=== PATIENT | female | born 1985 | race Caucasian/White ===

== ENCOUNTER 2018-05-20 18:01 | Emergency (ER) | payer MEDICAID ==
[~2018-05-20] VITALS: Ht 157.5 cm; Wt 68.9 kg
[2018-05-20] MEDS ORDERED: HYDREA500 MG PO (18:15)
[2018-05-20] MEDS ORDERED: PERCOCET PO (18:16)
[2018-05-20] MEDS ORDERED: IRON325 PO (18:16)
[2018-05-20] MEDS ORDERED: WELLBUTRIN SR150 MG PO (18:16)
[2018-05-20] MEDS ORDERED: ASPIR 8181 MG PO (18:16)
[2018-05-20] MEDS ORDERED: LEVAQUIN 500 M500 M2 PO (18:16)
[2018-05-20 19:02] LABS: URINE BILIRUBIN NEGATIVE (Negative); URINE BLOOD 2+ (Negative); URINE CLARITY CLEAR; URINE COLOR YELLOW; URINE GLUCOSE-RANDOM NEGATIVE (Negative); URINE KETONES NEGATIVE (Negative); URINE LEUKOCYTES-REFLEX NEGATIVE (Negative); URINE NITRITE-REFLEX NEGATIVE (Negative); URINE PROTEIN NEGATIVE (Negative); URINE UROBILINOGEN 0.2 E.U./dl (0.2-1.0)
[2018-05-20 19:13] LABS: SQUAMOUS 0-3 Few /LPF (0-3)
[2018-05-20 19:14] LABS: BACTERIA-REFLEX None Seen /HPF (None Seen); CASTS None Seen /LPF (None Seen); CRYSTALS None Seen /LPF (None Seen); URINE RBC None Seen /HPF (0-2); URINE WBC-REFLEX None Seen /HPF (0-5)
[2018-05-20 19:30] LABS: HEMATOCRIT 26.7 % (37.0-47.0); HEMOGLOBIN 8.4 gm/dL (12.0-15.0); MCH 24.9 pg (26.0-34.0); MCHC 31.5 g/dL (28.0-37.0); MCV 79.1 fL (80.0-100.0); MPV 8.8 fl. (7.2-11.1); NUCLEATED RBCS 0 /100WBC; PLATELET COUNT* 486 thou/uL (150-400); RBC 3.37 mil/uL (4.20-5.00); RDW-CV 25.9 % (10.5-14.5); WBC 5.4 thou/uL (4.0-11.0)
[2018-05-20 19:39] LABS: CALCIUM 7.9 mg/dL (8.5-10.1); CREATININE 0.7 mg/dL (0.6-1.3); POTASSIUM 3.9 mmol/L (3.5-5.1)
[2018-05-20 19:44] LABS: ALBUMIN 2.3 g/dL (3.4-5.0); TOTAL BILIRUBIN 0.3 mg/dL (<0.1-1.0); TOTAL PROTEIN 6.1 g/dL (6.4-8.2)
[2018-05-20 19:53] LABS: ABSOLUTE BASOPHILS 0.2 thou/uL (0.0-0.2); ABSOLUTE EOSINOPHILS 0.1 thou/uL (0.0-0.7); ABSOLUTE MONOCYTES 0.4 thou/uL (0.0-1.2); ABSOLUTE NEUTROPHILS 3.8 thou/uL (1.6-8.1); PLATELET ESTIMATE ADEQUATE
[2018-05-20 22:46] VITALS: BP 104/54
--- NOTE | 2018-05-21 10:33 | EKG ---
[place] [address] ELECTROCARDIOGRAM REPORT Name: DARRION HERNANDEZ [id number] Admission: 05/20/18 Attend Phys: Discharge: 05/20/18 Date of : 81 Report #: [id number] THIS REPORT FOR: //name// [facility] ED Test Date: 2018-05-20 Test Time: 20:48:33 Pat Name: DARRION HERNANDEZ Department: Room: Gender: F Baker Test: FÁTIMA : 1985 Requested By: Ariadne Cohen Order Number: [id number] MD: Cresencio Bolaños Measurements Intervals [place] Rate: 100 P: 11 OR: 120 QRS: 3 QRSD: 90 T: 11 QT: 369 QTc: 476 Interpretive Statements Sinus tachycardia nonspecific st changes Probable left atrial enlargement Borderline prolonged QT interval Baseline wander in lead(s) V4 No previous ECG available for comparison Electronically Signed On 05-21-2018 10:33:39 MUSEUM GUIDE by Cresencio Bolaños [email or web address] <ELECTRONICALLY SIGNED> By: Cresencio Bolaños MD, [facility] 05/21/18 [id number] 47 Cresencio Bolaños MD, [facility] /EPI
== END 2018-05-20 22:47 | disposition home or self-care (01) ==
LOC: M.ERS 18:01
PROVIDERS: Nurse Practitioner Family
DX: G89.18 Other acute postprocedural pain (principal); R10.84 Generalized abdominal pain; J18.9 Pneumonia, unspecified organism; R60.0 Localized edema; Z88.5 Allergy status to narcotic agent; Z88.0 Allergy status to penicillin; Z88.2 Allergy status to sulfonamides; Z86.14 Personal history of Methicillin resistant Staphylococcus aureus infection

== ENCOUNTER 2018-06-30 18:17 | Emergency (ER) | payer MEDICAID ==
[~2018-06-30] VITALS: Ht 154.9 cm; Wt 62.6 kg
[~2018-06-30 18:17] MED LIST: ASPIR 8181 MG PO; HYDREA500 MG PO; IRON325 PO; LEVAQUIN 500 M500 M2 PO; PERCOCET PO; WELLBUTRIN SR150 MG PO
[2018-06-30] MEDS ORDERED: NORCO 5-325 TA1 EACH PO (21:01)
[2018-06-30] MEDS ORDERED: NABUMETONE 750750 M1 PO (21:01)
[2018-06-30 21:14] VITALS: BP 121/77
== END 2018-06-30 21:15 | disposition home or self-care (01) ==
LOC: M.ERS 18:17
DX: M25.462 Effusion, left knee (principal); Z86.14 Personal history of Methicillin resistant Staphylococcus aureus infection; Z88.0 Allergy status to penicillin; Z88.2 Allergy status to sulfonamides; Z88.5 Allergy status to narcotic agent